=== PATIENT | male | born 2000 | race Caucasian/White ===

== ENCOUNTER 2023-11-07 15:21 | Emergency (ER) | payer OTHER, SELFPAY ==
[2023-11-07] MEDS ORDERED: Ketorolac Tromethamine 30 MG (1 mL) VIAL ONE (16:40)
[2023-11-07] MEDS ORDERED: Bacitracin 1 PK ONE (16:41)
== END 2023-11-07 17:30 | disposition home or self-care (01) ==
LOC: CSHERS 15:21
DX: S30.810A Abrasion of lower back and pelvis, initial encounter (principal); S90.512A Abrasion, left ankle, initial encounter; M25.511 Pain in right shoulder; V29.99XA Rider (driver) (passenger) of other motorcycle injured in unspecified traffic accident, initial encounter
CPT/HCPCS: 71045; 96372; J1885